=== PATIENT | male | born 1945 | race Caucasian/White ===

== ENCOUNTER 2024-08-21 06:28 | Inpatient (IN) | payer OTHER, MEDICARE ==
[2024-08-21] MEDS ORDERED: LIDOCAINE HCL/PF 2% SDV 5ML VIAL ONE (11:40)
[2024-08-21] MEDS ORDERED: PROPOFOL 20 ML ONE (11:41)
[2024-08-21] MEDS ORDERED: ROCURONIUM BROMIDE 50 MG/5 ML SYRINGE ONE (11:42)
[2024-08-21] MEDS ORDERED: MIDAZOLAM HCL 2 MG/2 ML SINGLE DOSE VIAL ONE (11:42)
[2024-08-21] MEDS ORDERED: VANCOMYCIN 1,000 MG VIAL (RESTRICTED TO ID ONLY) ONE (12:21)
[2024-08-21] MEDS ORDERED: GENTAMICIN SO4 80 MG/2 ML VIAL ONE (12:54)
[2024-08-21] MEDS: GENTAMICIN 80MG PREMIX BAG IVPB ONE (13:05)
[2024-08-21] MEDS ORDERED: DEXAMETHASONE SOD PHOSPHATE 4 MG/1 ML VIAL ONE (13:05)
[2024-08-21] MEDS: BUPIVACAINE LIPOSOME/PF (EXPAREL) 266 MG/20 ML VIAL IJ ONE (14:00)
[2024-08-21] MEDS: VANCOMYCIN 1,000 MG VIAL (RESTRICTED TO ID ONLY) IVPB ONE (14:00)
[2024-08-21] MEDS ORDERED: ACETAMINOPHEN 1000 MG/100 ML BAG IVPB PRN (16:09)
[2024-08-21] MEDS ORDERED: METOPROLOL TARTRATE 5 MG/5 ML VIAL ONE (16:21)
[2024-08-21] MEDS: METOPROLOL TARTRATE 5 MG/5 ML VIAL IVPUSH ONE (16:23)
[2024-08-21] MEDS ORDERED: ONDANSETRON 4 MG/2 ML VIAL IVPUSH PRN (16:28)
[2024-08-21] MEDS ORDERED: PROMETHAZINE HCL 25 MG/1 ML VIAL IVPB PRN (16:28)
[2024-08-21] MEDS: ACETAMINOPHEN 1000 MG/100 ML BAG IVPB SCH (16:41)
[2024-08-21] MEDS ORDERED: METOPROLOL TARTRATE 5 MG/5 ML VIAL IVPUSH PRN (16:54)
[2024-08-21] MEDS: LACTATED RINGERS SOLUTION 1,000 ML IV SCH (18:00)
[2024-08-21] MEDS: CEFAZOLIN 2 GM/D5W 2 GM/50 ML ML IVPB SCH (21:17)
[2024-08-21] MEDS ORDERED: CEFAZOLIN SODIUM 2 GM in DEXTROSE 5%-WATER 100 ML IVPB SCH (22:00)
[2024-08-22 08:52] LABS: BASOPHILS # 0.01 x10^3/uL (0.01-0.08); RDW 13.2 % (12.6-16.6)
[2024-08-22 08:54] LABS: ABSOLUTE IMMATURE GRANULOCYTES 0.05 x10^3/uL (0.0-0.031); EOSINOPHIL % 0.0 % (0.8-7.0); EOSINOPHILS # 0.00 x10^3/uL (0.04-0.54); IMMATURE PLATELET FRACTION # 7.50 x10^3/uL; MCHC 33.5 g/dl (32.3-36.5); MEAN CELL VOLUME 96.8 fl (79.0-92.2); MEAN PLT VOLUME 11.0 fl (9.4-12.4); MONOCYTE # 0.85 x10^3/uL (0.30-0.82); MONOCYTE % 7.1 % (5.3-12.2)
[2024-08-22 09:23] LABS: CO2 25.0 mmol/L (21-32); GLUCOSE,RANDOM 109.0 mg/dL (74-106)
[2024-08-22 09:26] LABS: CREATININE 1.0 mg/dL (0.55-1.3); SGOT/AST 24.0 U/L (15-37); SGPT/ALT 16.0 U/L (13-61)
[2024-08-22 09:27] LABS: TOT PROT 6.2 g/dl (6.4-8.2)
[2024-08-22 09:29] LABS: ALK PHOS 94.0 U/L (45-117)
[2024-08-22] MEDS: FAMOTIDINE 20 MG TABLET PO SCH (10:50)
[2024-08-22] MEDS: POLYETHYLENE GLYCOL (HEALTHYLAX) 3350 17 GM PACKET PO SCH (11:08)
[2024-08-22] MEDS: ACETAMINOPHEN 1000 MG/100 ML BAG IVPB ONE (13:46)
[2024-08-22 15:33] VITALS: BP 106/65; PULSE 82; RESP 18; TEMP 97.8
[2024-08-22] MEDS ORDERED: HEPARIN NA (PORCINE) 5,000 UNITS/ML 1ML VIAL SQ SCH (22:00)
== END 2024-08-22 16:30 | disposition home or self-care (01) | DRG 519 ==
LOC: JASUSAT 06:28 → J2C 15:58 → J8W 17:47
PROVIDERS: ADMIT Physician Assistant; ATTEND Orthopaedic Surgery Orthopaedic Surgery of the Spine
PROC: 01NB0ZZ Release Lumbar Nerve, Open Approach (ICD-10-PCS; 2024-08-21)
PROC: 0SH208Z Insertion of Spacer into Lumbar Vertebral Disc, Open Approach (ICD-10-PCS; 2024-08-21)
PROC: 00UT0KZ Supplement Spinal Meninges with Nonautologous Tissue Substitute, Open Approach (ICD-10-PCS; principal; 2024-08-21 12:00)
DX: M51.16 Intervertebral disc disorders with radiculopathy, lumbar region (principal); G97.41 Accidental puncture or laceration of dura during a procedure; M48.061 Spinal stenosis, lumbar region without neurogenic claudication; M41.86 Other forms of scoliosis, lumbar region; Y83.8 Other surgical procedures as the cause of abnormal reaction of the patient, or of later complication, without mention of misadventure at the time of the procedure; E78.5 Hyperlipidemia, unspecified; I48.91 Unspecified atrial fibrillation; Z95.2 Presence of prosthetic heart valve
CPT/HCPCS: 36415; 76000-TC-FY; 80053; 85025; 86850; 86900; 86901; 94760; 97116-GP; 97161-GP; C1821; J0666